=== PATIENT | male | born 1960 | race Two or more races ===

== ENCOUNTER 2017-12-30 07:59 | Emergency (ER) | payer OTHER, MEDICAID ==
[~2017-12-30] VITALS: Ht 160 cm; Wt 79.4 kg
[2017-12-30 08:22] VITALS: BP 131/96
== END 2017-12-30 09:58 | disposition home or self-care (01) ==
LOC: ER 08:02
DX: G44.209 Tension-type headache, unspecified, not intractable (principal); G89.29 Other chronic pain; M54.5 Low back pain
CPT/HCPCS: 70450